=== PATIENT | female | born 1960 | race Caucasian/White ===

== ENCOUNTER 2020-02-03 17:52 | Outpatient (CLI) | payer OTHER, SELFPAY ==
--- NOTE | ~2020-02-03 | CT_ITS ---
EXAMINATION: CT abdomen pelvis wo con DATE: 02/03/2020 18:41 INDICATION: Left lower quadrant abdominal pain. TECHNIQUE: Computed tomography (CT) of the abdomen and pelvis was performed without intravenous contr ast. Automated exposure control and iterative reconstruction technique were employed. The dose-length product was 330.90 mGy-cm. COMPARISON: None. FINDINGS: The visualized portions of the lung bases demonstrate mild atelectasis. No pleural effusion . The heart size is normal. No pericardial effusion. The liver, gallbladder, spleen, pancreas, adrena l glands, and kidneys are normal. There is no urolithiasis. There are no dilated loops of bowel. The appendix is not visualized. There is diverticulosis of the colon without evidence of diverticulitis. There are no pathologically enlarged lymph nodes. There is no free intraperitoneal fluid. There is mo derate lumbar spondylosis. IMPRESSION: 1. No specific etiology for the patient's symptoms. Reviewed, dictated and finalized at location A.
== END 2020-02-03 17:53 | disposition home or self-care (01) ==
PROVIDERS: PCP Family Medicine; Visit Provider Family Medicine
DX: R10.32 Left lower quadrant pain (principal)
CPT/HCPCS: 74176

== ENCOUNTER → 2020-02-06 15:25 | Outpatient (CLI) | payer OTHER, SELFPAY ==
--- NOTE | ~2020-02-06 | US_ITS ---
EXAMINATION: US pelvic complete DATE: 02/06/2020 15:46 INDICATION: Left lower quadrant abdominal pain. TECHNIQUE: Multiple transabdominal sonographic images of the pelvis were obtained. COMPARISON: CT abdomen and pelvis 02/03/2020 FINDINGS: The uterus measures 6.4 x 2.9 x 4.8 cm. There is no free fluid in the pelvis. The endometrial complex measures 4 mm in thickness. The right ovary measures 1.7 x 1.2 x 1.4 cm. The left ovary measures 2.2 x 1.4 x 2.4 cm. There is normal vascular flow in the ovaries. IMPRESSION: 1. Normal pelvis. Reviewed, dictated and finalized at location A. IMPRESSION: 1. Normal pelvis.
== END ==
PROVIDERS: PCP Family Medicine; Visit Provider Family Medicine
DX: R10.32 Left lower quadrant pain (principal)
CPT/HCPCS: 76856

== ENCOUNTER 2020-04-28 10:51 | Outpatient (NON) | payer OTHER, SELFPAY ==
[2020-04-28 23:29] LABS: SARS-CoV-2 RNA PCR Negative
== END 2020-04-28 10:52 ==
LOC: ANHCOVIDDT 10:51
PROVIDERS: PCP Family Medicine; Visit Provider Physician Assistant Medical
DX: R53.83 Other fatigue (principal); R42 Dizziness and giddiness; Z20.828 Contact with and (suspected) exposure to other viral communicable diseases
CPT/HCPCS: 87635; C9803; U0003

== ENCOUNTER 2020-08-07 08:35 | Outpatient (CLI) | payer OTHER, SELFPAY ==
--- NOTE | ~2020-08-07 | MM_ITS ---
EXAMINATION: MM screening [facility] BI w maciej HISTORY: Screening mammogram TECHNIQUE: Craniocaudal and mediolateral oblique 3-D tomosynthesis images were obtained and synthetic 2-D images were generated. CAD analysis was submitted and interpreted. COMPARISON: 06/30/2018, 11/15/2016, 10/20/2016, 08/26/2013 BREAST PARENCHYMAL COMPOSITION: There are scattered areas of fibroglandular density. FINDINGS: There is no evidence of suspicious mass, calcification, or architectural distortion to sugg est malignancy in either breast. There has been no suspicious interval change. IMPRESSION: 1. No mammographic evidence of malignancy. 2. Recommend routine screening mammography in one year. BI-RADS Category 1: Negative Reviewed, dictated and finalized at location A.
== END 2020-08-07 08:36 | disposition home or self-care (01) ==
LOC: ANHIMG 08:37
PROVIDERS: PCP Family Medicine; Visit Provider Nurse Practitioner
DX: Z12.31 Encounter for screening mammogram for malignant neoplasm of breast (principal)
CPT/HCPCS: 77063; 77067

== ENCOUNTER 2022-04-04 16:07 | Outpatient (CLI) | payer OTHER, SELFPAY ==
--- NOTE | ~2022-04-04 | MM_ITS ---
EXAMINATION: MM screening [facility] [place] w maciej HISTORY: Screening mammogram TECHNIQUE: Craniocaudal and mediolateral oblique 3-D tomosynthesis images were obtained and synthetic 2-D images were generated. CAD analysis was submitted and interpreted. COMPARISON: 08/07/2020, 06/30/2018, 11/15/2016, 10/20/2016 BREAST PARENCHYMAL COMPOSITION: There are scattered areas of fibroglandular density. FINDINGS: No suspicious mass, calcification, or architectural distortion are identified in either wilver ast to suggest malignancy. There has been no suspicious interval change. IMPRESSION: 1. No mammographic evidence of malignancy. 2. Recommend routine screening mammography in one year. BI-RADS Category 1: Negative Reviewed, dictated and finalized at location A. 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
== END 2022-04-04 16:08 | disposition home or self-care (01) ==
PROVIDERS: PCP Family Medicine; Visit Provider Family Medicine
DX: Z12.31 Encounter for screening mammogram for malignant neoplasm of breast (principal)
CPT/HCPCS: 77063; 77067

== ENCOUNTER 2022-08-11 08:14 | Outpatient (CLI) | payer OTHER, SELFPAY ==
[2022-08-11 10:53] LABS: Kit Draw Collected
== END 2022-08-11 08:15 | disposition home or self-care (01) ==
LOC: ANHGOSHLAB 08:15
PROVIDERS: PCP Family Medicine; Visit Provider Family Medicine
DX: E78.2 Mixed hyperlipidemia (principal)
CPT/HCPCS: 36415

== ENCOUNTER 2022-12-29 15:29 | Emergency (ER) | payer OTHER, SELFPAY ==
[2022-12-29 15:45] VITALS: BP 97/79; PULSE 84; RESP 16; TEMP 37; O2SAT 97
--- NOTE | 2022-12-29 15:47 | ED.URI ---
HPI - URI/Sore Throat General Chief Complaint: Upper Respiratory Infection Stated Complaint: Bronchitis symptoms Source: patient Mode of arrival: ambulatory Limitations: no limitations History of Present Illness HPI Narrative: 62-year-old female presented for complaint of coughing, fatigue, headache, and ?tightness? in chest for about 1 week. Chest tightness is a pain in the center of chest with deep breath. 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 She denies shortness of breath, wheezing, nausea vomiting, diarrhea, fevers or chills. Taking Tylenol for symptoms. Reports history of bronchitis and states symptoms are similar. Related Data Allergies Allergy/AdvReac Type Severity Reaction Status Date / Time amoxicillin [From Augmentin] AdvReac Mild nausea, gi Verified 11/16/22 13:31 distress clavulanic acid AdvReac Mild nausea, gi Verified 11/16/22 13:31 [From Augmentin] distress Review of Systems Review of Systems: CONSTITUTIONAL: Denies body aches, fever, chills, or sweats. EYES: Denies visual changes, redness, or discharge. ENT: Reports rhinorrhea, congestion, Denies sore throat, or otalgia. CARDIOVASCULAR: Denies chest pain, palpitations, or edema. RESPIRATORY: Reports cough, denies sob, wheezing. GASTROINTESTINAL: Denies abdominal pain, nausea, vomiting, or diarrhea. GENITOURINARY: Denies dysuria or hematuria. SKIN: Denies rash, itching, or wounds. MUSCULOSKELETAL: Denies back pain, joint pain, or myalgia. NEUROLOGIC: Denies headache, numbness, tingling, or weakness. PSYCH: Denies depression or anxiety. All systems reviewed & are unremarkable except as noted in HPI and below PMFSH Past Medical History Medical History Angular cheilitis Family History Family History Grandparent Family history of cardiovascular disease Social History Social History Smoking status: Never smoker Second hand tobacco smoke exposure: No Alcohol intake: current Alcohol use details: 2 glasses of wine per year Substance use: never Lack of Transportation: No Lack of Food: Never True Current Housing: I Have Housing Concerned About Future Housing: No Difficulty Paying Gas/Electric Bills: No Difficulty Paying for Meds: No Currently Unemployed: No Education: Master's Degree or Higher Difficulty w/ Childcare or Family Care: No Living arrangements: with family Occupation/Education: occupation Gender identity (if verbalized by the patient): Female Comments At time of signature, I have reviewed and agree with nursing past medical, surgical, social and family history unless otherwise noted. Please see nursing chart for further information. There is no relevant family history pertinent to the presenting complaint Exam Narrative: GENERAL: Well-appearing, in no acute distress. EYES: EOMI. No redness or drainage. Conjunctivae normal. ENT: Mucous membranes pink and moist. No rhinorrhea. TMs normal bilaterally. Throat normal. Uvula midline. NECK: Normal AROM. Supple. CHEST: No respiratory distress. Lungs clear to all otto. HEART: Regular rate and rhythm. No murmur appreciated. ABDOMEN: Soft, nontender, nondistended, normal active bowel sounds. EXTREMITIES: Normal range of motion. No edema. SKIN: Warm, dry, no rash. Capillary refill normal. Normal skin turgor. NEURO: Alert and oriented x3. Gait steady. PSYCH: Normal affect. Course Course Emergency Course: Patient is aware of diagnosis, understands and agrees to treatment plan. Anticipatory guidance given. Patient agrees to follow-up as directed and is aware of reasons to seek care at the emergency department. Portions of this record may have been created with voice recognition software Level of Care: [facility] Care Visit
== END 2022-12-29 16:36 | disposition home or self-care (01) ==
PROVIDERS: Emergency Provider Nurse Practitioner Family; PCP Family Medicine
DX: J40 Bronchitis, not specified as acute or chronic (principal); Z20.822 Contact with and (suspected) exposure to COVID-19
CPT/HCPCS: 87426; 99213; C9803; G0463

== ENCOUNTER 2023-05-05 12:49 | Outpatient (CLI) | payer OTHER, SELFPAY ==
--- NOTE | ~2023-05-05 | MM_ITS ---
EXAMINATION: MM screening [facility] BI w maciej HISTORY: Screening mammogram TECHNIQUE: Craniocaudal and mediolateral oblique 3-D tomosynthesis images were obtained and synthetic 2-D images were generated. CAD analysis was submitted and interpreted. COMPARISON: 04/04/2022, 08/07/2020, 06/30/2018 bilateral screening mammogram examinations BREAST PARENCHYMAL COMPOSITION: There are scattered areas of fibroglandular density. FINDINGS: There is no evidence of suspicious mass, calcification, or architectural distortion to sugg est malignancy in either breast. There has been no suspicious interval change. IMPRESSION: 1. No mammographic evidence of malignancy. 2. Recommend routine screening mammography in one year. BI-RADS Category 1: Negative Reviewed, dictated and finalized at location A. CER OPERATOR
== END 2023-05-05 12:50 | disposition home or self-care (01) ==
LOC: CHSIMG 12:51
PROVIDERS: PCP Family Medicine; Visit Provider Family Medicine
DX: Z12.31 Encounter for screening mammogram for malignant neoplasm of breast (principal)
CPT/HCPCS: 77063; 77067

== ENCOUNTER 2023-06-26 08:03 | Outpatient (CLI) | payer OTHER, SELFPAY ==
[2023-06-26 13:42] LABS: Alanine Aminotransferase 19 U/L (6-35); Albumin Level 4.2 g/dL (3.5-5.1); Alkaline Phosphatase 68 U/L (38-126); Anion Gap 3 mmol/L (8-16); Aspartate Amino Transferase 77 U/L (14-36); Bilirubin,Total 0.7 mg/dL (0.2-1.3); Blood Urea Nitrogen 11 mg/dL (7-17); Calcium 9.2 mg/dL (8.4-10.2); Carbon Dioxide 33 mmol/L (22-30); Chloride 101 mmol/L (98-107); Cholesterol 169 mg/dL (0-200); Estimated Glomerular Filt Rate > 60; Glucose 86 mg/dL (65-110); HDL Direct 40 mg/dL; Sodium 137 mmol/L (137-145); Triglycerides 152 mg/dL (<150)
[2023-06-26 13:53] LABS: LDL Cholesterol Direct 87 mg/dL
[2023-06-30 04:34] LABS: Apolipoprotein B 82 mg/dL (<90)
== END 2023-06-26 08:04 | disposition home or self-care (01) ==
LOC: ANHGOSHLAB 08:06
PROVIDERS: PCP Emergency Medicine; Visit Provider Family Medicine
DX: E78.2 Mixed hyperlipidemia (principal)
CPT/HCPCS: 36415; 80053; 80061; 82172

== ENCOUNTER 2023-08-19 08:23 | Outpatient (CLI) | payer OTHER, SELFPAY ==
--- NOTE | ~2023-08-19 | US_ITS ---
EXAMINATION: US transvaginal DATE: 08/19/2023 08:46 INDICATION: Postmenopausal bleeding. TECHNIQUE: Multiple transvaginal sonographic images of the pelvis were obtained. COMPARISON: None. FINDINGS: The uterus measures 7.7 x 3.5 x 4.7 cm. There is no free fluid in the pelvis. The endometrial complex measures 3 mm in thickness. There is material in the endocervical canal with thickness of 5 mm. The ovaries are not visualized. IMPRESSION: 1. Material in the endocervical canal with thickness of 5 mm suspicious for polyp or carcinoma. Reviewed, dictated and finalized at location E. IMPRESSION: 1. Material in the endocervical canal with thickness of 5 mm suspicious for arden yp or carcinoma.
== END 2023-08-19 08:24 ==
PROVIDERS: PCP Family Medicine; Visit Provider Advanced Practice Midwife
DX: N95.0 Postmenopausal bleeding (principal)
CPT/HCPCS: 76830

== ENCOUNTER 2024-05-06 13:25 | Outpatient (CLI) | payer OTHER, SELFPAY ==
--- NOTE | ~2024-05-06 | DEXA_ITS ---
Bone Density Report Name: EUGENIO QUINONES Age: 63 Sex: Female Ethnicity: White Date of : 1960 Indication: postmenopausal; screening for osteoporosis; Referring Provider: JASON CHURCH Study: Bone densitometry was performed. Exam Date: May 06, 2024 Accession number: [id number] Bone Density: Region BMD T-score Z-score Classification AP Spine(L1-L4) 1.000 -0.4 1.2 Normal Femoral Neck (Left) 0.797 -0.5 0.9 Normal Total Hip (Left) 0.984 0.3 1.4 Normal Femoral Neck (Right) 0.710 -1.3 0.1 Osteopenia Total Hip (Right) 0.846 -0.8 0.3 Normal Total Hip Mean 0.915 -0.3 0.9 Normal World Health Organization criteria for BMD impression classify patients as: Normal (T-score at or above -1.0), Osteopenia (T-score between -1.0 and -2.5), or Osteoporosis (T-score at or below -2.5). Clinical Information Provided by Patient: Has used the following medications: HRT (i.e. estrogen/hormone therapy), Vitamin D Patient maximum height was 65 Menopause Age: 56 Onset of menses at age 14 Number of children 4 Impression: The patient has low bone mass, based on the Right Femoral Neck T-score. Discussion: BONE DENSITY IS LOW AT ONE OR MORE SKELETAL SITES. This patient's lowest T-score is low at one or more skeletal sites. It meets the World Health Organization's (WHO) criteria for ?low bone mass? (T-score between -1.0 and -2.5). The patient's 10-year risk of fracture as calculated by FRAX is less than the threshold where pharmacological therapy is recommended by the National Osteoporosis Foundation (NOF). However, all treatment decisions require clinical judgment and consideration of individual patient factors, including patient preferences, comorbidities, previous drug use, risk factors not captured in the FRAX model (e.g., frailty, falls, vitamin D deficiency, increased bone turnover, interval significant decline in bone density) and possible under or overestimation of fracture risk by FRAX. The patient should follow a healthful lifestyle (good nutrition with adequate calcium and vitamin D, and appropriate weight-bearing exercise). Follow-Up: Consider repeating this study in 2 to 3 years to reassess this patient's status, or sooner if there is some new clinical indication. Reported by: MARY JANE on 05/06/2024 2:00:00 PM. Reviewed, dictated and finalized at location A. [facility]
--- NOTE | ~2024-05-06 | MM_ITS ---
EXAMINATION: MM screening [facility] BI w maciej HISTORY: Screening mammogram TECHNIQUE: Craniocaudal and mediolateral oblique 3-D tomosynthesis images were obtained and synthetic 2-D images were generated. CAD analysis was submitted and interpreted. COMPARISON: 05/05/2023, 04/04/2022, 08/07/2020 BREAST PARENCHYMAL COMPOSITION:Not Dense. There are scattered areas of fibroglandular density. FINDINGS: No suspicious mass, calcification, or architectural distortion are identified in either wilver ast to suggest malignancy. There has been no suspicious interval change. IMPRESSION: No mammographic evidence of malignancy. Recommend routine screening mammography in one year. BI-RADS Category 1: Negative Reviewed, dictated and finalized at location . OR PRODUCTION MANAGER
== END 2024-05-06 13:26 | disposition home or self-care (01) ==
LOC: ANHIMG 13:29
PROVIDERS: PCP Family Medicine; Visit Provider Family Medicine
DX: Z12.31 Encounter for screening mammogram for malignant neoplasm of breast (principal); M85.88 Other specified disorders of bone density and structure, other site; Z78.0 Asymptomatic menopausal state; Z13.820 Encounter for screening for osteoporosis
CPT/HCPCS: 77063; 77067; 77080

== ENCOUNTER 2024-10-11 08:02 | Outpatient (CLI) | payer OTHER, SELFPAY ==
--- OUTSIDE RECORDS SUMMARY | 2024-10-11 08:06 | XMS_ITS | Referral Summary ---
Author Organization [facility] Address [address] [place] [address] Care Team Providers Care Lift Operator Name Role Phone Eric Bailey MD Unavailable [phone] Catia Bailey PT Unavailable [phone] María Shaffer MD Primary Care Provider + Allergies Active Allergy Reactions Criticality Noted Date Comments Levonorgestrel-Ethinyl Estrad Sneezing Low 2020 Medications CombiPatch 0.05-0.14 mg/24 hr APPLY ONE PATCH TO ABDOMEN TWICE A WEEK 1 Active meloxicam (MOBIC) 15 mg tabletIndicatio ns:anti-inflamm atory Take 1 tab every day x 10 days then PRN thereafter 30 tablet 1 Active Active Problems No known active problems Social History Tobacco Use Types Packs/Day Years Used Date Smoking Tobacco: Never Smokeless Tobacco: Never Personal Safety Answer Date Recorded Getting School Help Needed Not on file 07/21 Comments Unknown Sex and Gender Information Value Date Recorded Sex Assigned at Not on file Legal Sex Female 11:57 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 Gender Identity Female 04/06/2018 9:34 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 Sexual Orientation Not on file Last Filed Vital Signs Vital Sign Reading Time Taken Comments Blood Pressure - - Pulse - - Temperature - - Respiratory Rate - - Oxygen Saturation - - Inhaled Oxygen Concentration - - Weight 63.5 kg (140 lb) 04/26/2018 10:05 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 Height 165.1 cm (5' 5) 04/26/2018 10:05 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 Body Mass Index 23.3 04/26/2018 10:05 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 Plan of Treatment Not on file Insurance [employer] [facility] [employer] OPEN ACCESS Member Subscriber Plan / Payer (Ef fective 2018-Present) Name:Sheila Vaz Member ID:[id number] Relation to Subscriber:Self Name:SHEILA VAZ Subscriber ID:[id number] Payer ID:[id number] Type:HE[employer] HMO/PPO Address: [address] [facility] Care Teams Lift Operator Relationship Specialty Start Date End Date María Shaffer MD [address] [facility] [place] [address] PCP - General Family Medicine 04/06/18 Eric Bailey MD [address] [facility] [place] [address] Surgeon Orthopedic Surgery 09/22/17 Catia Bailey, IZA [address] [facility] [place] [address] Physical Therapist Physical Therapy 10/20/17
--- OUTSIDE RECORDS SUMMARY | 2024-10-11 08:06 | XMS_ITS | Data Portability ---
Author Organization [place] - [facility] Address [address] [place] [address] Assessment No assessment recorded. Plan of Treatment Reminders Order Date Submit Date Provider Last Modified By Organization Details Last Modified Time Details Appointments None recorded. Lab None recorded. Referral None recorded. Procedures None recorded. Surgeries None recorded. Imaging None recorded. Medication Orders amoxicillin 875 mg-potassiu m clavulanate 125 mg tablet [address] [facility] [address] [place], [address], 5 11:55:35 promethazin e-DM 6.25 mg-15 mg/5 mL oral syrup [address] [facility] [address] [place], [address], 5 11:55:37 methylpredn isolone 4 mg tablets in a dose pack [address] [facility] [address] [place], [address], 5 11:55:36 Patient TargetsNo targets recorded. Patient Instructions Encounter Date Encounter Id Patient Instructions Last Modified By Organization Details Last Modified Time 06/13/2024 [id number] upper respirator y infection (cold): care instructions [id number] Not available 06/13/2024 19:56:35 Reason for Referral None Reported. Problems Name Problem SNOMED Code Status Onset Date Resolution Date Notes Provider Name and Address Organization Details Recorded Time Hyperlipidemi a 84319839 Active [address] [facility] [address], [place], [address], [place] [facility] 19:50:34 Problem Notes None recorded. Medical Equipment None Reported. Allergies No known drug allergies Medications Name Sig Start Date Stop Date Status Note LastModified by Organization Details LastModified Time promethazine -DM 6.25 mg-15 mg/5 mL oral syrup Take 5 mL every 4 hours by oral route. 2024 active Not Available Not Available Not Avai lable methylpredni solone 4 mg tablets in a dose pack Take by oral route. Day 1: 24 mg on day 1 administere d as 8 mg before breakfast, 4 mg after lunch, 4 mg after supper, and 8 mg at bedtime or 24 mg as a single dose or divided into 2 or 3 doses upon initiation (regardless of time of day). Day 2: 20 mg on day 2 administere d as 4 mg before breakfast, 4 mg after lunch, 4 mg after supper, and 8 mg at bedtime. Day 3: 16 mg on day 3 administere d as 4 mg before breakfast, 4 mg after lunch, 4 mg after supper, and 4 mg at bedtime. Day 4: 12 mg on day 4 administere d as 4 mg before breakfast, 4 mg after lunch, and 4 mg at bedtime. Day 5: 8 mg on day 5 administere d as 4 mg before breakfast and 4 mg at bedtime. Day 6: 4 mg on day 6 administere d as 4 mg before breakfast. 2024 active Not Available Not Available Not Avai lable amoxicillin 875 mg-potassium clavulanate 125 mg tablet Take 1 tablet every 12 hours by oral route. 2024 active Not Available Not Available Not Avai lable Fish Oil 1,000 mg (120 mg-180 mg) capsule Take 1 capsule every day by oral route. active Not Available Not Available No t Available Vitals None Recorded Social History None recorded. Functional Status None recorded. Mental Status None recorded. Family History Nothing Reported. Medical History No medical history recorded. Gynecological HistoryNo gynecological history recorded. Obstetrics History GPAL:G 0 P 0 0 0 0 Past Encounters Encounter ID Performer Location Encounter Start Date Encounter Closed Date Diagnosis/Indication Diagnosis SNOMED-CT Code Diagnosis ICD10 Code Diagnosis Note [id number] MICKI Briggs [place] [address] [place] [address] 06/13/2024 19:41:27 06/14/2024 01:55:03 Acute upper respiratory infection 33689200 J06.9 Ibuprofen Q4-6H PRN pain/fever , max 3200mg/day OTC Robitussin DM - Follow instructio ns on boxAdequat e hydrationA dequate restCool mist humidifier for easier breathingF renee testingF/U if symptoms worsen or do not resolve [id number] Nicolle Fuller NP [facility] [address] [place] [address] 06/24/2024 11:44:26 06/24/2024 11:57:14 Acute bronchitis 58866557 J20.9 PLAN: Given patient s presentati on and symptoms, I prescribed oral steroids, promethazi ne DM and augmentin. For ongoing cough, patient can try to use a humidifier at night. Liquids, lozenges, cough drops, vaporizers , and steamy showers may help soothe a cough. Over-the-c ounter cough medicine may also help. Honey may help. Avoid tobacco smoke and drink plenty of fluids. If symptoms persist >5-7 days, I advise they f/u with [facility] or an for evaluation . Health Concerns Section Related Observation LastModified by Organization Detai ls LastModified Time None Recorded Concern Status LastModified by Organization Details LastModified Time None Recorded Advance Directives Directive None Recorded Payers Insurance Date Sequence Insurance Name Policy Number Policy Askew Covered Member ID Askew Member ID Guarantor Name 06/24/2024 [facility] [id number] Laura Milind [id number] Laura Abrahamoie 06/24/2024 2 [facility] [id number] Laura Milind [id number] Laura Milind 06/13/2024 1 *SELF PAY* Gilda Vaz 06/13/2024 3 *SELF PAY* [id number] Laura Milind [id number] Laura Abrahamoie 07/01/2024 1 [facility] [id number] Laura Abrahamoie [id number] Laura Vaz Notes Date Note Type Note Provider Name and Address Organization Details Recorded Time 06/13/2024 text/html Call connected, patient greeted. Patient name, , telephone number, and location verified verbally with the patient. Telemedicine limitations reviewed, answered all questions the patient had about the telehealth interaction, and verbal consent obtained to treat. Clinician attests they are physically located in the following state at the time of visit: [place] HPI: 63 y/o female c/o fever. Reports temperature of 100.0 F x 2 days ago., body aches, chills, fatigue, headache, nasal congestion, runny nose, productive cough, chest congestion x 1 week. Denies sinus pressure, sore throat, n/v/d, abdominal pain. Treating symptoms with ibuprofen, mucinex q12h. MICKI Briggs [address] [facility] [address] [place] [address], [address], [facility] 06/13/2024 20:00:35 06/24/2024 text/html Call connected, patient greeted, introduced myself as a Nurse Practitioner, identity/location confirmed, telephone number verified, telemedicine limitations reviewed, verbal consent obtained, allergies reviewed, PMH, social hx and family hx reviewed. Prior visits reviewed before visit. Pt is a 63yo F who is c/o ongoing symptoms. She was seen 11 days ago and wasn't given any prescriptions or help and the provider told it was viral. It started 2.5wks ago. It's gotten worse. She has chest congestion, coughing up green drainage, DANIELS, sinus pressure. No fever or chills. Denies GI symptoms. Denies SOB or CP. 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 Nicolle Fuller NP [address] [facility] [address], [place], [address], [place] [facility] 06/24/2024 11:56:50 OBGyn Episode No OBEpisode recorded.
--- OUTSIDE RECORDS SUMMARY | 2024-10-11 08:06 | XMS_ITS | Clinical Summary ---
Author Organization [facility] Address [address] [place] [address] Care Team Providers Care Barrel Line Operator Name Role Phone Eric Bailey MD Unavailable [phone] Catia Bailey PT Unavailable [phone] María Shaffer MD Primary Care Provider + Allergies Active Allergy Reactions Criticality Noted Date Comments Levonorgestrel-Ethinyl Estrad Sneezing Low 2020 Medications CombiPatch 0.05-0.14 mg/24 hr APPLY ONE PATCH TO ABDOMEN TWICE A WEEK 1 Active meloxicam (MOBIC) 15 mg tabletIndicatio ns:anti-inflamm atory Take 1 tab every day x 10 days then PRN thereafter 30 tablet 1 Active Active Problems No known active problems Surgical History Surgery Date Site/Laterality Comments KNEE SURGERY Medical History Medical History Date Comments Allergic rhinitis Migraines Social History Tobacco Use Types Packs/Day Years Used Date Smoking Tobacco: Never Smokeless Tobacco: Never Personal Safety Answer Date Recorded Getting School Help Needed Not on file 07/21 Comments Unknown Sex and Gender Information Value Date Recorded Sex Assigned at Not on file Legal 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 Female 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 Gender Identity Female 04/06/2018 9:34 AM MECHANICAL SYSTEMS CONTROL ENGINEER Sexual Orientation Not on file Obstetrics History Last Filed Vital Signs Vital Sign Reading Time Taken Comments Blood Pressure - - Pulse - - Temperature - - Respiratory Rate - - Oxygen Saturation - - Inhaled Oxygen Concentration - - Weight 63.5 kg (140 lb) 04/26/2018 10:05 AM MECHANICAL SYSTEMS CONTROL ENGINEER Height 165.1 cm (5' 5) 04/26/2018 10:05 AM MECHANICAL SYSTEMS CONTROL ENGINEER Body Mass Index 23.3 04/26/2018 10:05 AM MECHANICAL SYSTEMS CONTROL ENGINEER Plan of Treatment Not on file Insurance [facility] [employer] OPEN ACCESS Member Subscriber Plan / Payer (Ef fective 2018-Present) Name:Sheila Vaz Member ID:[id number] Relation to Subscriber:Self Name:SHEILA VAZ Subscriber ID:[id number] Payer ID:[id number] Type:[employer] HMO/PPO Address: [address] Care Teams Barrel Line Operator Relationship Specialty Start Date End Date María Shaffer MD [address] [facility] [place] [address] PCP - General Family Medicine 04/06/18 Eric Bailey MD [address] [facility] [place] [address] Surgeon Orthopedic Surgery 09/22/17 Catia Bailey, PT [address] [facility] [place] [address] Physical Therapist Physical Therapy 10/20/17
--- OUTSIDE RECORDS SUMMARY | 2024-10-11 08:06 | XMS_ITS | Clinical Summary ---
Author Organization [facility] Address [address] [place] [address] Care Team Providers Care Political Advisor Name Role Phone Dennis Rod MD Primary Care Provider [phone] Source Comments [facility],non-owned Affiliates and Associated Physician Practices is amultiple site organization consisting of ambulatory clinics and hospital sitesin [place], [place], [place] and [place]. This disclosure is being madepursuant to the Care Everywhere program and may not contain all information available regarding this patient. Last updated 18.[facility] Allergies Active Allergy Reactions Criticality Noted Date Comments Levonorgestrel-Ethinyl Estrad Rhinitis Low 2020 Medications * Be aware that medications may not be up to date on this document. Alwaysverify current medications with the patient. 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 Allergic contact dermatitis due to other agents 07/28/2015 Family History Medical History Relation Name Comments Allergy (Severe) Neg Hx CVA Neg Hx Cancer Neg Hx Cancer - Breast Neg Hx Cancer - Skin, Melanoma Neg Hx Cancer - Skin, Non Melanoma Neg Hx Eczema Neg Hx Hemophilia Neg Hx Psoriasis Neg Hx Rashes/Skin Problems Neg Hx Social History Tobacco Use Types Packs/Day Years Used Date Smoking Tobacco: Never Smokeless Tobacco: Never Alcohol Use Standard Drinks/Week Comments No 0 (1 standard drink = 0.6 oz pur e alcohol) Comments Unknown Sex and Gender Information Value Date Recorded Sex Assigned at Not on file 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 Gender Identity Not on file Sexual Orientation Not on file Last Filed Vital Signs Vital Sign Reading Time Taken Comments Blood Pressure 118/54 12/29/2020 5:20 PM CDT Pulse 80 12/29/2020 5:20 PM CDT Temperature 36.7 C (98 F) 12/29/2020 5:20 PM CDT Respiratory Rate 16 12/29/2020 5:20 PM CDT Oxygen Saturation 97% 12/29/2020 5:20 PM CDT Inhaled Oxygen Concentration - - Weight 63.5 kg (140 lb) 12/29/2020 5:20 PM CDT Height 165.1 cm (5' 5) 12/29/2020 5:20 PM CDT Body Mass Index 23.3 12/29/2020 5:20 PM CDT Plan of Treatment Health Maintenance Due Date Last Done Comments COLOGUARD (AGES 45-75) - COL ON CA SCREENING 1961 COLON MONITORING 1961 COLONOSCOPY - COLON CA SCREENING 1961 CT COLONOGRAPHY - COLON CA SCREENING 1961 Colorectal Cancer Screening 1961 FIT - COLON CA SCREENING 1961 FLEX SIG - COLON CA SCREENING 1961 LIPID TESTING 1961 MAMMOGRAM 1961 HIV SCREENING 1976 HEPATITIS C SCREENING 10/09/1979 DTAP/TDAP/TD VACCINES (1 - Tdap) 1980 PNEUMOCOCCAL VACCINE 50+ (1 of 1 - PCV) 10/14/2011 ZOSTER VACCINE (1 of 2) 10/14/2011 COVID-19 VACCINE (3 - 2023-2 5 season) 2024 06/20/2020, 05/30/2020 DEPRESSION SCREENING 05/08/2024 INFLUENZA VACCINE (Season Ended) 2025 02/15/2019, 01/31/2018 Respiratory Syncytial Virus (RSV) Vaccine Pt: or over 60 yrs (1 - 1-dose 75+ series) 2036 HEPATITIS B VACCINE Aged Out No longe r eligible based on patient's age to complete this topic HIB VACCINE Aged Out No longer eligi ble based on patient's age to complete this topic HPV VACCINE Aged Out No longer eligi ble based on patient's age to complete this topic MENINGOCOCCAL (Group B) VACCINE SHARED DECISION-MAKING Aged Out No longer eligible based on patient's age to complete this topic MENINGOCOCCAL GROUPS A/C/Y/W VACCINE Aged Out No longer eligible b ased on patient's age to complete this topic Insurance [employer] Care Teams Political Advisor Relationship Specialty Start Date End Date Dennis Rod MD [address] [place] [id number] PCP - General 06/02/15
[2024-10-11 12:07] LABS: Kit Draw Collected
== END 2024-10-11 08:03 | disposition home or self-care (01) ==
LOC: ANHGOSHLAB 08:04
PROVIDERS: PCP Family Medicine; Visit Provider Family Medicine
DX: E78.2 Mixed hyperlipidemia (principal); E55.9 Vitamin D deficiency, unspecified; Z78.0 Asymptomatic menopausal state; Z13.820 Encounter for screening for osteoporosis
CPT/HCPCS: 36415

== ENCOUNTER 2025-02-01 08:28 | Outpatient (CLI) | payer OTHER, SELFPAY ==
--- OUTSIDE RECORDS SUMMARY | 2000-08-15 09:00 | XMS_ITS | Continuity of Care Document ---
Author Organization [facility] Address [address] [place] [address] Phone Care Team Providers Care Program Development Manager Name Role Phone Dinero OD, Sudheer Unavailable Unavailable Advance Directives Directive Yes / No Effective Date File Name No Information Encounters Encounter Description Practice Location Reason(s) For Visit Diagnoses Date Provider Providers Copied on Encounter [facility], [id number] [place] [address] [address], [place], [place], [id number], [place] tel:[phone] [facility] No Information 0-200 1 Dinero OD Sudheer. [address] , [address], [place], [address], [place]. tel:[phone] Family History Family Member Type Diagnosis Age At Onset No Information Payers Payer name Insurance type Covered democrat ID Authoriza tion(s) No Information Social History Type Description Quantity Date Captured Comments Sex Female Smoking Status No Information Chief Complaint And Reason For Visit No Information Reason For Referral Reason For Referral No Information History Of Present Illness Encounter Date Complaint History Of Prese nt Illness No Information Functional Status Date Functional Assessmen t No Information Instructions Date Instruction Additional Infor mation No Information Assessments Type Assessment Date No Information Patient Care Teams Name Effective Dates (start - stop) Status Members No Information
--- NOTE | ~2025-02-01 | XR_ITS ---
EXAMINATION: XR shoulder LT min 2V, 02/01/2025 9:29 CDT HISTORY: Left Hip and Shoulder pain COMPARISON: No comparisons available. Findings: No acute fracture or malalignment. No significant degenerative changes. Soft tissues unremarkable. Impression: No acute fracture or malalignment. Reviewed, dictated and finalized at location P. Impression: No acute fracture or malalignment.
--- NOTE | ~2025-02-01 | XR_ITS ---
EXAMINATION: XR hip LT min 2V, 02/01/2025 9:29 CDT HISTORY: Left Hip and Shoulder pain COMPARISON: No comparisons available. Findings: No acute fracture or malalignment. No significant degenerative changes. Soft tissues unremarkable. Impression: No acute fracture or malalignment. Reviewed, dictated and finalized at location P. Impression: No acute fracture or malalignment.
--- OUTSIDE RECORDS SUMMARY | 2025-02-01 08:40 | XMS_ITS | Clinical Summary ---
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 Gender Identity Female 04/06/2018 9:34 AM VICE PRESIDENT PRECISION MARKET INSIGHTS Sexual Orientation Not on file Obstetrics History Last Filed Vital Signs Vital Sign Reading Time Taken Comments Blood Pressure - - Pulse - - Temperature - - Respiratory Rate - - Oxygen Saturation - - Inhaled Oxygen Concentration - - Weight 63.5 kg (140 lb) 04/26/2018 10:05 AM VICE PRESIDENT PRECISION MARKET INSIGHTS Height 165.1 cm (5' 5) 04/26/2018 10:05 AM VICE PRESIDENT PRECISION MARKET INSIGHTS Body Mass Index 23.3 04/26/2018 10:05 AM VICE PRESIDENT PRECISION MARKET INSIGHTS Plan of Treatment Not on file Insurance [employer] [facility] CHOICE PLUS [employer] OPEN ACCESS [employer] [facility] CHOICE PLUS Care Teams Cobol Mainframe Developer Relationship Specialty Start Date End Date María Shaffer MD [address] [place] [address] PCP - General Family Medicine 04/06/18 Eric Bailey MD [address] [place] [address] Surgeon Orthopedic Surgery 09/22/17 Catia Bailey PT [address] [place] [address] Physical Therapist Physical Therapy 10/20/17
--- OUTSIDE RECORDS SUMMARY | 2025-02-01 08:40 | XMS_ITS | Clinical Summary ---
Author Organization [facility] Address [address] [place] [address] Care Team Providers Care Manager Mental Health Name Role Phone Dennis Rod MD Primary Care Provider [phone] Source Comments [facility],non-owned Affiliates and Associated Physician Practices is amultiple site organization consisting of ambulatory clinics and hospital sitesin [place], [place], [place] and [place]. This disclosure is being madepursuant to the Care Everywhere program and may not contain all information available regarding this patient. 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
== END 2025-02-01 08:29 | disposition home or self-care (01) ==
LOC: ANHLAB 08:38
PROVIDERS: PCP Family Medicine
DX: M25.552 Pain in left hip (principal); M25.512 Pain in left shoulder
CPT/HCPCS: 73030; 73502